=== PATIENT | female | born 1995 | race Caucasian/White ===

== ENCOUNTER 2017-01-20 06:02 | Inpatient (IN) | payer BC ==
[~2017-01-20] VITALS: Ht 157.5 cm; Wt 75.0 kg
[~2017-01-20 06:02] MED LIST: ALBU18HF2 ORAL INH; FLUT100D2 INH; MULT-942 PO CHEW
--- OUTSIDE RECORDS SUMMARY | 2017-01-20 06:06 | XMS REPORT | Continuity of Care Document ---
Author Author [facility] Organization [facility] Address Unknown Phone Unavailable Support Name Relationship Address Phone JULY TOWNSEND MD Caregiver [address] [address] Unavailable PETE HOOKER MD Caregiver [address] [place] [address] [place] [address] Unavailable JULEE GARCIA Next Of Kin [address] [place] [address] Insurance Providers Guarantor Amber Bautista Address [address] [place] [address] Email [email or web address] Policy Number [id number] Subscriber's Name Amber Bautista Relationship 18 Self Group Number [id number] Chief Complaint and Reason for Visit Chief Complaint Laceration Reason for Visit [id number] Problems Active Problems Medical Problem Onset Date Status Soft tissue avulsion Unknown Acute Medications Current Home Medications Medication Dose Units Route Directions Days Qty Instructions Start Date Albuterol Sulfate (Ventolin Hfa 90 Mcg/Actuation) 18 Gm Hfa.aer.ad 1 Puff Oral Inhalation Every 4 Hours as needed for Shortness Of Air/Wheezing 09/19/16 Fluticasone Propionate (Flovent Diskus) 100 Mcg Blst.w.dev 1 Puff Inhalation Twice A Day 09/19/16 Multivitamin (Gummi Bear Multivitamin) 1 Each Tab.chew 1 Tab Po Chew Daily 09/19/16 Social History Social History Problem Response Recorded Date/Time Onset Date Status Hx Substance Use No 09/19/2016 7:21pm Not Applicable Not Applicable Query Response Start Date Stop Date Smoking Status Never smoker Hospital Discharge Instructions No hospital discharge instructions. Plan of Care Discharge Date 09/19/16 8:47pm Disposition 01 DISCHARGED HOME, SELF-CARE Condition at Discharge Stable Instructions/Education Provided DI for Avulsion Laceration (Not Requiring Sutures) Prescriptions See Medication Section Referrals PETE HOOKER MD Address: [address] [place] [address] [place] [address] [phone] Note: as needed Additional Instructions/Education KEEP PRESSURE DRESSING ON THUMB. CHANGE DRESSING NEEDED. USE SURGICEL DRESSING ON WOUND ITSELF; THE SURGICEL WILL BECOME ADHERED TO THE THUMB AND THIS WILL NEED TO BE ALLOWED TO FALL OFF ON ITS OWN OR YOU CAN SOAK IT OFF IN A COUPLE DAYS. USE PLAIN MOTRIN FOR PAIN; IT IS OK TO USE NORCO IN PLACE OF TYLENOL IF NEEDED. DO NOT TAKE WITHIN 4 HOURS OF PLAIN TYLENOL. Functional Status No functional status results. Allergies, Adverse Reactions, Alerts No known allergies. Immunizations Immunization Event Date Type Not Given Reason Dose Number Lot Number Ceramics Test Engineer VIS Given Tdap 09/19/16 Administered 1 [id number] [employer] 11/06/14 Query Response on File Recorded Date/Time Influenza Vaccine Hx NO 09/19/16 8:07pm Tdap Vaccine Hx 09/19/16 09/19/16 8:07pm Vital Signs Acute Vital Signs Vital Response Date/Time Temperature (Fahrenheit) 98.9 deg F (96.8 - 99.1) 09/19/2016 8:47pm Temperature (Calculated Celsius) 37.07982 degrees C (36.0 - 37.3) 09/19/2016 8:47pm Pulse Rate (adult) 82 bpm (60 - 100) 09/19/2016 8:47pm Respiratory Rate 18 breaths/min (10 - 20) 09/19/2016 8:47pm O2 Sat by Pulse Oximetry 100 % (90 - 100) 09/19/2016 8:47pm Blood Pressure 129/68 mm Hg 09/19/2016 8:47pm Height (Feet) 5 feet 09/19/2016 7:18pm Height (Inches) 2.00 inches 09/19/2016 7:18pm Weight (Kilograms) 60.300 kg 09/19/2016 7:18pm Body Mass Index (BMI) 24.0 09/19/2016 7:18pm Results No known relevant diagnostic tests, laboratory data and/or discharge summary. Procedures No known history of procedures. Encounters Encounter Location Arrival/Admit Date Discharge/Depart Date Attending Provider Departed Emergency Room [facility] 09/19/16 7:11pm 09/19/16 8: 47pm JULY TOWNSEND MD Recent Diagnosis
--- OUTSIDE RECORDS SUMMARY | 2017-01-20 06:06 | XMS REPORT | Continuity of Care Document ---
Author Author [facility] Organization [facility] Address Unknown Phone Unavailable Allergies Active Description Code Type Severity Reaction Onset Reported/Identified Relationship to Patient Clinical Status Yes No Known Drug Allergies 883716 3 N/A N/A Medications Medication Packaging Start Date Stop Date Route Dosage Sig ALBUTEROL SULFATE HFA Inhaler 07/08/2016 inhale 2 puff by inhalation route every 4 - 6 hours as needed [id number] Capsule 08/05/2016 09/08/2016 take 1 - 2 capsule by oral route every 6 hours as needed not to exceed 6 capsules per 24hrs PEAK-AIR Each 09/15/2016 Use as needed FLOVENT DISKUS Disk 09/15/2016 inhale 1 puff by inhalation route 2 times every day Problems Date Dx Coded Attending Type Code Diagnosis Diagnosed By 09/09/2016 Moriah Engel O36.5920 Matern care for oth or susp poor fetl grth, 2nd tri, unsp 09/09/2016 Moriah Engel.19 19 weeks gestation of 11/30/2016 Moriah Engel99.89 Oth diseases and conditions compl preg/chldbrth 11/30/2016 Moriah Engel.31 31 weeks gestation of 12/24/2016 Moriah Engel40.3xx0 Polyhydramnios, third trimester, not applicable or unsp 12/24/2016 Moriah Engel.35 35 weeks gestation of 12/30/2016 Moriah Engel O36.5930 Matern care for oth or susp poor fetl grth, third tri, unsp 12/30/2016 Moriah Engel40.3xx0 Polyhydramnios, third trimester, not applicable or unsp 12/30/2016 Moriah Engel99.89 Oth diseases and conditions compl preg/chldbrth 12/30/2016 Engel, Moriah K W Z3A.36 36 weeks gestation of 01/04/2017 Engel, Moriah Johnson W O40.3xx0 Polyhydramnios, third trimester, not applicable or unsp 01/04/2017 Engel, Moriah Gan Z3A.36 36 weeks gestation of 01/13/2017 W O36.5930 Matern care for oth or susp poor fetl grth, third tri, unsp 01/13/2017 W O40.3xx0 Polyhydramnios, third trimester, not applicable or unsp 01/13/2017 W O99.89 Oth diseases and conditions compl preg/chldbrth 01/13/2017 W Z3A.38 38 weeks gestation of Procedures Code Description [place] [address] Ultrasnd exam of preg uterus, compl 09/09/2016 38459 Ultrasnd preg uterus, flwup/repeat 11/30/2016 40351 biophys prfl w/o nstress test 12/24/2016 57905 Ultrasnd preg uterus, flwup/repeat 12/30/2016 10482 biophys prfl w/o nstress test 12/30/2016 96892 biophys prfl w/o nstress test 01/04/2017 55906 biophys prfl w/o nstress test 01/13/2017 Results Encounters ACCT No. Visit Date/Time Discharge Status Pt. Type Provider Facility Loc./Unit Complaint [id number] 11/22/2013 15:32:00 11/22/2013 23 :59:59 [facility] Outpatient [id number] 10/09/2013 13:42:00 10/09/2013 23 :59:59 [facility] Out[facility]
[2017-01-20] MEDS ORDERED: OXYTOCIN 30 UNIT in D5LR 500 ML SCH (06:15)
[2017-01-20] MEDS ORDERED: LIDOCAINE 1% (10mg/ml) 2ml SDV ID PRN (06:15)
[2017-01-20] MEDS ORDERED: CALCIUM CARBONATE 500mg Chewable TAB PO PRN (06:15)
[2017-01-20] MEDS ORDERED: MAG-AL + SIM LIQUID 30 ML UDC PO PRN (06:15)
[2017-01-20] MEDS ORDERED: ACETAMINOPHEN 500 MG TABLET PO PRN (06:15)
[2017-01-20] MEDS ORDERED: D5LR 1,000 ML IV PRN (06:45)
[2017-01-20 06:56] LABS: HCT - HEMATOCRIT 32.7 % (36-46); HGB - HEMOGLOBIN 10.9 GM/DL (12-16); MEAN CORPUSCULAR HGB 29.7 UUG (26-34); MEAN CORPUSCULAR HGB CONC(MCHC 33.3 GM/DL (31-37); MEAN CORPUSCULAR VOLUME 89.1 UM3 (80-100); MEAN PLATELET VOLUME 10.2 UM3 (9.4-12.4); RED BLOOD COUNT 3.67 M/MM3 (4.00-5.20); WBC - WHITE BLOOD COUNT 10.9 T/MM3 (4.5-11.0)
[2017-01-20 07:16] VITALS: BP 123/75; PULSE 83; RESP 16; TEMP 98.6; O2SAT 99
[2017-01-20] MEDS: ONDANSETRON 4mg/2ml INJECTION IV PRN ×2 (09:58→16:42)
--- NOTE | 2017-01-20 10:47 | ANESOB ---
Epidural/ Date/Time DATE: 01/20/17 TIME: 0945 Preop Diagnosis Procedure: Labor Epidural (pt unsure if she wants an epidural. will try natural first, then call if needs it. ) Plan: Epidural Height: 5 ' 2.00 " Weight: 75.000 kg BMI: kg/m2 P:0 Medications & Allergies Inpatient Medications Current Medications Medications (Trade) Dose Ordered Sig/Winnie Start Time Stop Time Status Last Admin Dose Admin Dextrose/Lactated Ringer's 1,000 ml @ 0 mls/hr Q0M PRN 01/20/17 06:45 Oxytocin/Dextrose/ Lactated Ringer's (Pitocin/D5lr) 503 ml @ 0 mls/hr Q0M 01/20/17 06:15 Lidocaine HCl 0.2 mg 0.2 mg PRN PRN 01/20/17 06:15 Lactated Ringer's (Lactated Ringers) 1,000 ml @ 0 mls/hr Q0M PRN 01/20/17 06:03 Acetaminophen (Tylenol Extra Strength) 1-2 TABS = 500-1,000 MG Q4H PRN 01/20/17 06:15 Al Hydroxide/Mg Hydroxide (Maalox) 30 ml Q4H PRN 01/20/17 06:15 Calcium Carbonate (TUMS Regular Strength) 1-2 TABS Q2H PRN 01/20/17 06:15 Ondansetron HCl (Zofran) 4 mg Q4H PRN 01/20/17 10:00 01/20/17 09:58 4 MG Albuterol Sulfate (Ventolin HFA 90 mcg/actuation) 18 Gm Hfa.aer.ad, 1 PUFF ORAL INH Q4H PRN for SHORTNESS OF AIR/WHEEZING, (Reported) Last Taken: on Unknown Date & Time Fluticasone Propionate (Flovent Diskus) 100 Mcg Blst.w.dev, 1 PUFF INH BID, (Reported) Last Taken: on 01/13/17 0300 Multivitamin (Gummi Bear Multivitamin) 1 Each Tab.chew, 1 TAB PO CHEW DAILY, (Reported) Last Taken: on Unknown Date & Time Coded Allergies: No Known Allergies (Unverified , 01/08/17) Medical/Surgical History Anesthesia PMH: Denies: *Angina, *Diabetes, *Hypertension, *ND, Anesthesia Reactions, Asthma, CHF, COPD, CVA/Stroke/TIA, Hiatal Hernia, Malignant Hyperthermia, Pacemaker, Pneumonia, Reflux, Seizures, Tuberculosis Smoking Status: Never smoker Does patient use chewing tobac: No Substance Use Type: does not use Alcohol Intake: none Anesthesia Adverse Reactions: FOUND none Family Hx of Anesthesia Advers: none Hx of Motion Sickness: No Complications During : No Pertinent Findings Laboratory Tests 01/20/17 06:34 Physical Exam Respiratory: Lungs clear Cardiovascular: Regular rate, rhythm Airway Assessment Mallampati Score: II TMD: 3 Fingerbreadths Neck Extension: Good Overall Assessment: May Be Diff Intubation ASA: 2 Discussion Discussed risks/options/alternatives of anesthesia. Patient consents. Nursing pain assessment noted. Present for Discussion: Present: Spouse Attestation Statement Prior to the delivery of any anesthetic medication, I examined the patient, developed the plan, obtained the patient's consent and discussed the risk and benefits of the procedure with the patient/guardian. If the note happens to be signed after anesthesia start time, it is only due to providing efficient care of the patient and documenting at a time when the computer is available. ZOE POLLOCK DIRECTOR OF INSTRUMENTAL MUSIC January 20, 2017 10:47
[2017-01-20] MEDS: LR 1,000 ML IV PRN ×3 (13:16→17:02)
[2017-01-20] MEDS ORDERED: OXYTOCIN 30 UNIT in D5W 500 ML IV ONE (18:58)
[2017-01-20] MEDS ORDERED: --POM--ALBUTEROL HFA INHALER 8gm ORAL INH PRN (19:00)
[2017-01-20] MEDS ORDERED: DiphenhydrAMINE 25 MG CAPSULE PO PRN (19:00)
[2017-01-20] MEDS ORDERED: HYDROCORTISONE 2.5% CREAM 30 GM RECTALLY PRN (19:00)
[2017-01-20] MEDS ORDERED: PHENYLEPHRINE RECTAL SUPPOSITORY RECTALLY PRN (19:00)
[2017-01-20] MEDS ORDERED: MILK OF MAGNESIA 30 ML SUSP PO PRN (19:00)
[2017-01-20] MEDS: HYDROCODONE/APAP 5 mg/325 mg TABLET PO PRN (19:25)
[2017-01-20] MEDS: IBUPROFEN 800 MG TABLET PO PRN (19:25)
[2017-01-20] MEDS ORDERED: METHYLERGONOVINE 0.2mg/ml INJECTION IM ONE (19:45)
[2017-01-20] MEDS ORDERED: FLUTICASONE PROPIONATE INH SCH (21:00)
[2017-01-20 22:45] VITALS: BP 126/64; PULSE 81; RESP 18; TEMP 98.4
--- NOTE | 2017-01-21 01:06 | NUR ---
Chart Check 24 hour chart check completed
[2017-01-21 01:40] VITALS: BP 114/57; PULSE 83; RESP 18; TEMP 98.4; O2SAT 98
--- NOTE | 2017-01-21 02:44 | NUR ---
shift summary VSS, fundus firm lochia scant/small. methergine x1. patient voiding and providing percy care. ambulated without complaints or problems, instructed to call when out of bed. norco and ibuprofen administered for pain, patient reports pain controlled. no further changes noted. will continue to monitor and educate.
--- NOTE | 2017-01-21 07:50 | PNPDOC ---
Progress Note PPD1 Rubella: Immune GBS: Neg Blood Type:A pos Subjective 01/21/17 Lochia: Minimal Pain: Controlled Voiding: Voiding Having to supplement with formula due to low blood sugars. Objective Vital Signs Date Time Temp Pulse Resp B/P Pulse Ox O2 Delivery O2 Flow Rate FiO2 01/21/17 01:40 98.4 83 18 114/57 98 Room Air Urine Output: Good General: Alert and Oriented Abdomen: Fundus Firm, Non-tender Extremities: Non-tender T max was 100.1 at 2045. An hour later her temp was 98.8 and afebrile since then. Assessment (1) (spontaneous vaginal delivery) Plan: Routine Care Plan Expected date of discharge: January 22, 2017 MATEO HAILE MD January 21, 2017 07:50
[2017-01-21 07:56] VITALS: BP 116/56; PULSE 80; RESP 16; TEMP 98.5; O2SAT 99
[2017-01-21] MEDS ORDERED: DOCUSATE CALCIUM 240 MG CAPSULE PO SCH (09:00)
[2017-01-21] MEDS: IBUPROFEN 800 MG TABLET PO PRN ×2 (09:27→23:03)
[2017-01-21] MEDS: HYDROCODONE/APAP 5 mg/325 mg TABLET PO PRN (09:28)
--- NOTE | 2017-01-21 13:24 | LDNF ---
DATE OF DELIVERY 01/20/2017 JORGE Clark is a 21-year-old 1 at 39 weeks 1 day gestational age who was brought in for a Pitocin induction due to polyhydramnios and LGA. Her membranes were ruptured artificially, returning clear fluids. She progressed nicely throughout labor. She never received an epidural. After she pushed for two hours we discussed different options of placing a pudendal block, epidural, operative vaginal delivery, and section. She opted for a pudendal block. She continued to slowly bring baby down in the pelvis. She pushed for a total of approximately 3 hours 40 minutes. She had a spontaneous vaginal delivery in the ROBERTA position. Baby was vigorous at delivery so she was placed on mom's abdomen and the cord clamping was delayed for more than two minutes. The placenta delivered spontaneously. She had a second-degree laceration that was repaired after it was injected with local. She had a small right vaginal laceration that was repaired with a [id number]. She had a right periurethral laceration that was not repaired. Baby is a viable female infant, Apgars 8/9, weight 3956 g, name "Heavenly." Mom and baby tolerated the delivery well. [facility]
[2017-01-21 14:15] VITALS: BP 111/53; PULSE 73; RESP 16; TEMP 98.5
[2017-01-21] MEDS: FLUTICASONE 50 MCG ORAL INH SCH (21:31)
[2017-01-21 22:00] VITALS: BP 116/58; PULSE 78; RESP 16; TEMP 98.1; O2SAT 99
[2017-01-22 06:00] VITALS: BP 111/61; PULSE 73; RESP 16; TEMP 97.9; O2SAT 99
[2017-01-22] MEDS: IBUPROFEN 800 MG TABLET PO PRN (06:29)
[2017-01-22] MEDS ORDERED: HYDR-4246 PO (08:09)
[2017-01-22] MEDS ORDERED: IBUP-1547 PO (08:09)
[2017-01-22] MEDS: FLUTICASONE 50 MCG ORAL INH SCH (09:00)
== END 2017-01-22 12:30 | disposition home or self-care (01) | DRG 775 ==
LOC: MC 06:02 → UNDODISIN 19:15
PROVIDERS: ADMIT Obstetrics & Gynecology; ATTEND Obstetrics & Gynecology
PROC: 10E0XZZ Delivery of Products of Conception, External Approach (ICD-10-PCS; principal; 2017-01-20)
PROC: 0KQM0ZZ Repair Perineum Muscle, Open Approach (ICD-10-PCS; 2017-01-20)
PROC: 3E033VJ Introduction of Other Hormone into Peripheral Vein, Percutaneous Approach (ICD-10-PCS; 2017-01-20)
PROC: 10907ZC Drainage of Amniotic Fluid, Therapeutic from Products of Conception, Via Natural or Artificial Opening (ICD-10-PCS; 2017-01-20)
DX: O40.3XX0 Polyhydramnios, third trimester, not applicable or unspecified (principal); O36.63X0 Maternal care for excessive fetal growth, third trimester, not applicable or unspecified; O63.1 Prolonged second stage (of labor); O32.8XX0 Maternal care for other malpresentation of fetus, not applicable or unspecified; O70.1 Second degree perineal laceration during delivery; O99.52 Diseases of the respiratory system complicating childbirth; J45.909 Unspecified asthma, uncomplicated; Z3A.39 39 weeks gestation of pregnancy; Z37.0 Single live birth
CPT/HCPCS: 36415; 85027; 86850; 86900; 86901; 94640